=== PATIENT | male | born 1975 | race Caucasian/White ===

== ENCOUNTER 2023-04-21 12:27 | Emergency (ER) | payer BC ==
[~2023-04-21] VITALS: Ht 182.9 cm; Wt 115.0 kg
[2023-04-21 12:56] LABS: BASOPHILS 0.8 % (0-2); EOSINOPHILS 1.8 % (0-6); LYMPHOCYTES 25.2 % (24-44); MCH 29.7 (27-36); MCHC 33.4 g/dl (30-36); MCV 88.8 fl (81-99); MONOCYTES 6.2 % (0-12); PLATELET COUNT 344 K/uL (140-440); RBC 5.07 M/ul (4.3-5.7); RDW 13.3 (10.5-15.0)
[2023-04-21 13:07] LABS: ALBUMIN 4.2 g/dL (3.4-5.0); ALBUMIN/GLOBULIN RATIO 1.2 (1.1-2.4); ANION GAP 12.6 (7-21); BILIRUBIN, TOTAL 0.6 ng/dL (0.2-1.0); BUN/CREATININE RATIO 15.85 (6.0-28.6); CALCIUM 8.4 mg/dL (8.5-10.1); CREATININE, SERUM 0.82 mg/dL (0.70-1.30); POTASSIUM 3.6 mmol/L (3.5-5.1); PROTEIN, TOTAL 7.7 g/dL (6.4-8.2)
[2023-04-21] MEDS ORDERED: COZAAR50 MG PO (13:31)
[2023-04-21 13:44] VITALS: BP 154/95
== END 2023-04-21 13:45 | disposition home or self-care (01) ==
LOC: ED 12:27
PROVIDERS: Emergency Medicine
DX: R03.0 Elevated blood-pressure reading, without diagnosis of hypertension (principal); R20.2 Paresthesia of skin
CPT/HCPCS: 36415; 80053; 85025; 99284